=== PATIENT | female | born 1990 ===

== ENCOUNTER 2017-05-24 13:50 | Emergency (ER) | payer OTHER ==
[2017-05-24 13:59] VITALS: BP 105/72; TEMP 98.8
[2017-05-24 15:00] LABS: INFLUENZA A B NEGATIVE FOR FLU A/B (NEGATIVE)
[2017-05-24 15:21] VITALS: PULSE 92; RESP 18; O2SAT 99
--- NOTE | 2017-05-24 15:27 | ED PDOC ---
Arrival/HPI - General Chief Complaint: ENT Problem Time Seen by Provider: 05/24/17 14:12 Historian: Patient - History of Present Illness Narrative History of Present Illness (Text): 05/24/17 15:30 26-year-old female presents today with a one-day history of nasal congestion and sore throat and body aches and subjective fevers. Patient denies chest pain or shortness of breath. Denies dizziness. Patient complaining of generalized fatigue. No vomiting or diarrhea. No abdominal pain no sick contacts. No other complaints Symptom Onset: Gradual Symptom Course: Unchanged Quality: Aching Past Medical History - Provider Review Nursing Documentation Reviewed: Yes - Travel History Have you recently traveled outside [place] w/in the past 3 mons?: No - Infectious Disease Hx of Infectious Diseases: None - Tetanus Immunization Tetanus Immunization: Unknown - Psychiatric Hx Psychophysiologic Disorder: No Hx Substance Use: No Family/Social History - Physician Review Nursing Documentation Reviewed: Yes Family/Social History: Unknown Family HX Smoking Status: Never Smoked Hx Alcohol Use: No Hx Substance Use: No Allergies/Home Meds Allergies/Adverse Reactions: Allergies No Known Allergies Allergy (Verified 05/24/17 13:56) Review of Systems - Review of Systems Constitutional: Fevers. absent: Fatigue ENT: Sore Throat, Sinus Congestion Respiratory: absent: SOB, Cough Cardiovascular: absent: Chest Pain, Palpitations Gastrointestinal: absent: Abdominal Pain, Nausea, Vomiting Genitourinary Female: absent: Dysuria Musculoskeletal: absent: Arthralgias Skin: absent: Rash, Pruritis Neurological: Headache. absent: Dizziness Psychiatric: absent: Anxiety, Depression Physical Exam Vital Signs Reviewed: Yes Vital Signs Temp Pulse Resp BP Pulse Ox 05/24/17 15:20 92 H 18 99 05/24/17 13:58 98.8 F 102 H 16 105/72 96 Temperature: Afebrile Blood Pressure: Normal Pulse: Tachycardic Respiratory Rate: Normal Appearance: Positive for: Well-Appearing, Non-Toxic, Comfortable Pain Distress: None Mental Status: Positive for: Alert and Oriented X 3 - Systems Exam Head: Present: Atraumatic Conjunctiva: Present: Normal Ears: Present: Normal, NORMAL TM Mouth: Present: Moist Mucous Membranes. No: Drooling, Trismus Pharnyx: Present: Normal. No: ERYTHEMA, EXUDATE, TONSILS ENLARGED, Peritonsilar Swelling, Uvular Deviation, Muffled/Hoarse Voice Nose (External): Present: Atraumatic Nose (Internal): Present: Clear Mucous Neck: Present: Normal Range of Motion, Trachea Midline. No: Lymphadenopathy Respiratory/Chest: Present: Clear to Auscultation, Good Air Exchange. No: Respiratory Distress, Accessory Muscle Use Cardiovascular: Present: Regular Rate and Rhythm, Normal S1, S2. No: Murmurs Abdomen: No: Tenderness Neurological: Present: GCS=15 Skin: Present: Warm, Dry, Normal Color. No: Rashes Psychiatric: Present: Alert, Oriented x 3 Medical Decision Making ED Course and Treatment: 05/24/17 15:42 Patient is nontoxic well-appearing in no distress. Complaining of flulike symptoms. Rapid flu negative Rapid strep negative Tylenol given by mouth Patient reassessment: Patient is nontoxic well-appearing no distress stable vital signs will treat patient with tamiflu; I advised follow up with primary care physician within the next 2 days. I advised increase fluids and return if symptoms worsen persist or if new symptoms develop. Patient verbalizes understanding of discharge instructions and need for immediate followup. all aspects of this case were discussed the attending of record. IMPRESSION; influenza tylenol every 4 hours as needed for pain tamiflu; 1 tablet twice daily x 5 days. Increase fluids Followup with primary care physician the next 2 days Return if symptoms worsen persist or if new symptoms develop - Lab Interpretations Lab Results: Lab Results 05/24/17 14:30: Influenza Typ A,B (EIA) Negative for flu a/b, Grp A Beta Strep Ag Negative - Medication Orders Current Medication Orders: Discontinued Medications Acetaminophen (Tylenol 325mg Tab) 975 mg PO STAT STA Stop: 05/24/17 14:13 Last Admin: 05/24/17 14:27 Dose: 975 mg [facility] Pain/Vitals Document 05/24/17 14:27 GMD (Rec: 05/24/17 14:27 GMD [facility] [place]) Pain Reassessment Is This A Pain ReAssessment? No Sleep Is patient sleeping during reassessment? No Presence of Pain Presence of Pain Yes Disposition/Present on Arrival - Present on Arrival Any Indicators Present on Arrival: No History of DVT/PE: No History of Uncontrolled Diabetes: No Urinary Catheter: No History of Decub. Ulcer: No History Surgical Site Infection Following: None - Disposition Have Diagnosis and Disposition been Completed?: Yes Diagnosis: Influenza Disposition: HOME/ ROUTINE Disposition Time: 15:27 Patient Plan: Discharge Patient Problems: Current Active Problems Problem Status Onset Influenza Acute Condition: GOOD Discharge Instructions (ExitCare): Influenza (ED) Additional Instructions: tylenol every 4 hours as needed for pain/fever reduction Tamiflu; 1 tablet twice daily x 5 days. Increase fluids Followup with primary care physician the next 2 days Return if symptoms worsen persist or if new symptoms develop Prescriptions: Ibuprofen [Motrin] 600 mg PO Q6H PRN #20 tab PRN Reason: pain/fever reduction Oseltamivir [Tamiflu] 75 mg PO BID #10 cap Referrals: [facility] [place] - Follow up with primary Onesimo Duggan MD [Staff Provider] - Follow up with primary Forms: [employer] (Thai), WORK NOTE, SCHOOL NOTE
== END 2017-05-24 15:34 | disposition home or self-care (01) ==
LOC: ED 13:50 → MERGE 13:50 → ED 15:34
DX: J11.1 Influenza due to unidentified influenza virus with other respiratory manifestations (principal)

== ENCOUNTER 2017-10-14 14:51 | Emergency (ER) | payer SELFPAY | END 2017-10-14 16:48 | disposition left against medical advice (07) | LOC: ED 14:51 | DX: Z02.89 Encounter for other administrative examinations (principal); R07.0 Pain in throat ==